=== PATIENT | female | born 1940 | race Caucasian/White ===

== ENCOUNTER 2018-04-26 09:41 | Day surgery (SDC) | payer MEDICARE, OTHER, SELFPAY ==
[2018-04-24 17:14] VITALS: BMI 21.6
[2018-04-26] VITALS (9 sets, daily range): BP systolic 155–191; BP diastolic 75–88; PULSE 59–76; RESP 11–20; TEMP 36.5–36.7; O2SAT 94–99; BMI 20.6
[2018-04-26] MEDS: LACTATED RINGERS 1,000 ML 100 ML IV (10:27)
--- NOTE | 2018-04-26 10:39 | PM.PREOP ---
Pre-operative Note Interval Note Pre-op Check: Yes History & Physical Reviewed by Physician and Yes Exam Performed Changes: No H&P completed within 30 days and has changed as indicated here:: see outpt note 04/24/18
[2018-04-26] MEDS: CEFAZOLIN 2 GM/100 ML FROZ.PIGGY IV (11:17)
--- NOTE | 2018-04-26 11:21 | SUR.OPER ---
Lithotomy on padded OR bed, head on pillow, arms secured on padded arm boards at <90 degrees abduction. Legs secured in padded yellow fins stirrups.
[2018-04-26] MEDS: BUPIVACAINE 0.5% W/ EPI (PF) VIAL 30 ML INJ (11:35)
--- NOTE | 2018-04-26 12:08 | PM.OP.1 ---
Operative Date/Time/Diagnoses Date of procedure: 04/26/18 Time of procedure: 12:08 Pre-op diagnosis: Symptomatic cystocele post hysterectomy Post-op diagnosis: same Procedure & Clinicians Procedure: Colpocleisis Same procedure as scheduled: Yes Indications: Symptomatic cystocele post hysterectomy Surgeon: Hanny Diggs Click Yes if Unassisted: Yes Anesthesia Type: General Operative Notes Findings: Cystocele Closure Type: primary Specimen(s): none sent Estimated Blood Loss (mL): 25 Procedure in detail: - Patient was brought to the operating room where she was in a supine position in [facility] and underwent a light general anesthetic. She was prepped and draped in the usual sterile fashion. Her bladder was drained. Antibiotics were in prior to beginning of the case. Warming was in place. Pulsatile stockings were in place. Area on anterior and posterior wall of the prolapse were marked with a marking pen and injected with a dilute solution of half percent Marcaine with epinephrine. The skin was incised with a scalpel and undermined with and removed removed with Metzenbaum scissors. 2-0 Vicryl suture was used in an interrupted fashion to close anterior to posterior on the sides creating a tunnel from the apex to the external area. The vaginal incision was closed from anterior to posterior deep and external. Counts of instruments and sponges were correct. Patient went to recovery room in good condition. Complications: none Condition: stable Disposition: same day surgery Plan for aftercare: Home when awake and stable
--- NOTE | 2018-04-26 12:11 | P.OP_ITS ---
Operative Date/Time/Diagnoses Date of procedure: 04/26/18 Time of procedure: 12:08 Pre-op diagnosis: Symptomatic cystocele post hysterectomy Post-op diagnosis: same Procedure & Clinicians Procedure: Colpocleisis Same procedure as scheduled: Yes Indications: Symptomatic cystocele post hysterectomy Surgeon: Hanny Diggs Click Yes if Unassisted: Yes Anesthesia Type: General Operative Notes Findings: Cystocele Closure Type: primary Specimen(s): none sent Estimated Blood Loss (mL): 25 Procedure in detail: - Patient was brought to the operating room where she was [facility] supine [facility] and underwent a light general anesthetic. She was prepped and draped in the usual sterile fashion. Her bladder was drained. Antibiotics were in prior to beginning of the case. Warming was in place. Pulsatile stockings were in place. Area on anterior and posterior wall of the prolapse were marked with a marking pen and injected with a dilute solution of half percent Marcaine with epinephrine. The skin was incised with a scalpel and undermined with and removed removed with Metzenbaum scissors. 2-0 Vicryl suture was used in an interrupted fashion to close anterior to posterior on the sides creating a tunnel from the apex to the external area. The vaginal incision was closed from anterior to posterior deep and external. Counts of instruments and sponges were correct. Patient went to recovery room in good condition. Complications: none Condition: stable Disposition: same day surgery Plan for aftercare: Home when awake and stable
--- NOTE | 2018-04-26 14:41 | SUR.PHASEII ---
1317 Small amt of dark pink drainage to michael-pad. Pt up to the bathroom to void. Pt reported passing blood and clots. call light within reach. 1414 Pt stood at bedside. Clear and pink drainage dripping from perineum. VS stable. Dr Diggs called and notified regarding bleeding with void and bloody fluid dripping from patient. No new orders. Pt denied feeling dizzy or lightheaded. Michael-pads provided. Pt dressed independently and transferred self to the wheelchair.
== END 2018-04-26 14:25 | disposition home or self-care (01) ==
PROVIDERS: PCP Family Medicine; Visit Provider Specialist
PROC: (CPT 57120; principal; 2018-04-26 10:45)
DX: N81.11 Cystocele, midline (principal); Z90.710 Acquired absence of both cervix and uterus; I10 Essential (primary) hypertension; E03.9 Hypothyroidism, unspecified; M35.00 Sjogren syndrome, unspecified
CPT/HCPCS: 57120; J0690; J2250; J2405; J2704; J3010